=== PATIENT | male | born 1950 | race Caucasian/White ===

== ENCOUNTER 2023-11-27 19:20 | Emergency (ER) | payer OTHER ==
[2023-11-27 19:42] VITALS: TEMP 97.9; BMI 30.7
[2023-11-27] MEDS ORDERED: HALOPERIDOL LACTATE 5 MG/ML ONE (21:23)
[2023-11-27] MEDS: LORazepam 2 MG/ML SDV VIAL IM ONE (21:30)
[2023-11-27] MEDS: HALOPERIDOL LACTATE 5 MG/ML IM ONE (21:30)
[2023-11-28 05:44] VITALS: BP 111/67; PULSE 67; RESP 18
== END 2023-11-28 10:05 | disposition home or self-care (01) ==
LOC: JER 19:20
PROC: 3E023GC Introduction of Other Therapeutic Substance into Muscle, Percutaneous Approach (ICD-10-PCS; principal; 2023-11-27)
PROC: 3E023GC Introduction of Other Therapeutic Substance into Muscle, Percutaneous Approach (ICD-10-PCS; 2023-11-27)
DX: R41.0 Disorientation, unspecified (principal); Y04.0XXA Assault by unarmed brawl or fight, initial encounter
CPT/HCPCS: 70450-TC; 72125-TC; 93005; 93010; 99284-25